=== PATIENT | male | born 1955 | race Caucasian/White ===

== ENCOUNTER → 2017-09-24 | Outpatient (CLI) | payer BC, OTHER | LOC: LAB.R 08:00 | PROVIDERS: ATTEND Family Medicine | DX: G89.29 Other chronic pain (principal) | CPT/HCPCS: 80307 ==

== ENCOUNTER 2017-09-28 07:39 | Outpatient (CLI) | payer OTHER ==
[2017-09-28 11:12] LABS: ALBUMIN/GLOBULIN RATIO 1.4 (1.0-2.2); BILIRUBIN,TOTAL 0.5 mg/dL (0.2-1.0); BUN - BLOOD UREA NITROGEN 20 mg/dL (6-20); CALCIUM 9.1 mg/dL (8.5-10.3); CARBON DIOXIDE - CO2 25 mmol/L (21-32); CHLORIDE 107 mmol/L (101-111); CHOL/HDL RATIO 4.3 (<5.0); CHOLESTEROL 165 mg/dL; CREATININE 0.8 mg/dL (0.6-1.2); GFR - MDRD 97 (>89); GLUCOSE 108 mg/dL (70-100); HDL CHOLESTEROL 38 mg/dL; LDL/HDL RATIO 2.4 (<3.6); POTASSIUM 4.2 mmol/L (3.5-5.0); SODIUM 138 mmol/L (135-145); TOTAL PROTEIN 7.2 g/dL (6.7-8.2); TRIGLYCERIDES 175 mg/dL; VLDL CHOLESTEROL 35 mg/dL
[2017-09-28 11:33] LABS: HEMOGLOBIN A1C 0.64 g/dL
== END 2017-09-28 07:40 | disposition home or self-care (01) ==
LOC: LAB.F 07:39
PROVIDERS: ATTEND Family Medicine
DX: Z00.00 Encounter for general adult medical examination without abnormal findings (principal); E29.1 Testicular hypofunction; R73.01 Impaired fasting glucose; R53.83 Other fatigue; C67.9 Malignant neoplasm of bladder, unspecified; Z12.5 Encounter for screening for malignant neoplasm of prostate
CPT/HCPCS: 36415; 80053; 80061; 83036; 84153; 84403

== ENCOUNTER 2017-12-17 08:00 | Outpatient (CLI) | payer OTHER, BC | END 2017-12-17 08:01 | disposition home or self-care (01) | LOC: LAB.R 08:00 | PROVIDERS: ATTEND Family Medicine | DX: Z79.891 Long term (current) use of opiate analgesic (principal); M54.5 Low back pain | CPT/HCPCS: 80307; 80354; 80358; 80361; 80362; 80365; 81599 ==